=== PATIENT | male | born 1970 | race Caucasian/White ===

== ENCOUNTER 2017-12-27 12:19 | Emergency (ER) | payer OTHER ==
[2017-12-27] MEDS ORDERED: Piperacillin/Tazobactam 4.5 GM in Sodium Chloride 0.9% 100 ML IV ONE (12:59)
[2017-12-27] MEDS ORDERED: Bacitracin Oint 1 GM U/D Packet TOP ONE (13:04)
[2017-12-27] MEDS ORDERED: Diphtheria,Pertussis(Acell),Tetanus Vaccine 0.5 ML SDV IM ONE (13:21)
--- NOTE | 2017-12-27 14:03 | EDM.PDOC ---
ED HPI GENERAL MEDICAL PROBLEM - General Chief Complaint: Laceration Stated Complaint: LACERATION LEFT WRIST Time Seen by Provider: 12/27/17 13:20 Source of Information: Reports: Patient History Limitations: Reports: No Limitations - History of Present Illness INITIAL COMMENTS - FREE TEXT/NARRATIVE: pt was using a hot wire glass tube cutter today and it slipped and he ended up with a cut on the dorsum of his hand. He had a fair amount of bleeding at the time. Onset: Today Duration: Hour(s): Location: Reports: Upper Extremity, Right Associated Symptoms: Reports: No Other Symptoms Wrist Pain Score (Numeric/FACES): 5 - Related Data Allergies Allergy/AdvReac Type Severity Reaction Status Date / Time No Known Allergies Allergy Verified 12/27/17 13:14 Home Meds: Home Meds NK [No Known Home Meds] 12/27/17 [History] Past Medical History Musculoskeletal History: Reports: Fracture - Infectious Disease History Infectious Disease History: Reports: Chicken Pox - Past Surgical History GI Surgical History: Reports: Hernia, Inguinal Social & Family History - Tobacco Use Smoking Status *Q: Heavy Tobacco Smoker Years of Tobacco use: 25 Packs/Tins Daily: 1 - Caffeine Use Caffeine Use: Reports: Coffee, Energy Drinks, Soda - Recreational Drug Use Recreational Drug Use: No ED ROS GENERAL - Review of Systems Review Of Systems: See Below Constitutional: Reports: No Symptoms HEENT: Reports: No Symptoms Respiratory: Reports: No Symptoms Cardiovascular: Reports: No Symptoms Endocrine: Reports: No Symptoms GI/Abdominal: Reports: No Symptoms : Reports: No Symptoms Musculoskeletal: Reports: Other (laceration on the dorsum of the rt hand at the base of the thumb--2 inches in length. ) ED EXAM, SKIN/RASH Exam: See Below Text/Narrative:: Pt has a laceration at the dorsum of the lrt thumb- circular 2 inches in total length. He had full range of motion of the thumb. He had numbness over the dorsum of the thumb after he was injected with lidocaine. Exam Limited By: No Limitations General Appearance: Alert, Anxious, Mild Distress Extremities: Other ( Pt had a 2 inch circular laceration on the dorsum of the rt thumb-- 2 inches in total length. This was injected with lidocaine. He did develop some numbness over the dorsum of the thumb. He had great motio. The wound was closed with 5-0 chromic and 5-0 prolene. The wound was dressed with bacatracin and a dressing was applied. ) Course - Vital Signs Last Recorded V/S: Last Vital Signs Temp 36.2 C 12/27/17 13:20 Pulse 85 12/27/17 13:20 Resp 16 12/27/17 13:20 BP 131/83 12/27/17 13:20 Pulse Ox 98 12/27/17 13:20 - Orders/Labs/Meds Orders: Active Orders 24 hr Category Date Time Status Vaccines to be Administered [RC] PER UNIT ROUTINE Care 12/27/17 13:21 Active Meds: Medications Discontinued Medications Generic Name Dose Route Start Last Admin Trade Name Freq PRN Reason Stop Dose Admin Bacitracin 1 dose 12/27/17 13:04 12/27/17 13:23 Bacitracin Oint 1 Gm TOP 12/27/17 13:05 1 dose ONETIME ONE Administration Diphtheria/Tetanus/Acell Pertussis 0.5 ml 12/27/17 13:21 12/27/17 13:49 Adacel IM 12/27/17 13:22 0.5 ml .ONCE ONE Administration Piperacillin Sod/Tazobactam 100 mls @ 200 mls/hr 12/27/17 12:59 12/27/17 14: 00 Sod 4.5 gm/ Sodium Chloride IV 12/27/17 13:28 Not Given Q6H ONE Lidocaine HCl 5 ml 12/27/17 12:58 12/27/17 13:23 Xylocaine-Mpf 1% INJECT 12/27/17 12:59 5 ml ONETIME ONE Administration Departure - Departure Time of Disposition: 14:02 Disposition: Home, Self-Care 01 Condition: Fair Clinical Impression: Laceration of hand - Discharge Information Referrals: PCP,None [Primary Care Provider] - Forms: ED Department Discharge Care Plan Goals: keep dry, no further ointments, sr in 8 days. keep covered, rtc if redness or drainage. - My Orders Last 24 Hours: My Active Orders 12/27/17 13:21 Vaccines to be Administered [RC] PER UNIT ROUTINE - Assessment/Plan Last 24 Hours: My Active Orders 12/27/17 13:21 Vaccines to be Administered [RC] PER UNIT ROUTINE
== END 2017-12-27 14:09 | disposition home or self-care (01) ==
LOC: JP.ED 12:19
DX: S61.411A Laceration without foreign body of right hand, initial encounter (principal); Z72.0 Tobacco use; Z23 Encounter for immunization; W01.0XXA Fall on same level from slipping, tripping and stumbling without subsequent striking against object, initial encounter
CPT/HCPCS: 12002; 90471; 90715; 99283-25

== ENCOUNTER 2018-04-18 01:35 | Emergency (ER) | payer OTHER ==
[2018-04-18] MEDS ORDERED: methylPREDNISolone Acetate 80 MG/ML SDV IARTIC ONE (02:31)
[2018-04-18] MEDS ORDERED: Lidocaine 1% 20 ML MDV INJECT ONE (02:35)
[2018-04-18] MEDS ORDERED: HYDROmorphone 1 MG/ML Syringe IM ONE (02:59)
[2018-04-18] MEDS ORDERED: Ondansetron 4 MG Tab.DIS PO ONE (03:00)
--- NOTE | 2018-04-18 04:36 | EDM.PDOC ---
ED HPI GENERAL MEDICAL PROBLEM - General Chief Complaint: Lower Extremity Injury/Pain Stated Complaint: GOUT IN KNEE Time Seen by Provider: 04/18/18 03:11 Source of Information: Reports: Patient History Limitations: Reports: No Limitations - History of Present Illness INITIAL COMMENTS - FREE TEXT/NARRATIVE: This patient complains of a gout attack to his left knee for 3 days. He says the pain is getting really severe he can't stand it anymore. He insists that we drained the knee and do a steroid injection. He said he's had that before and it always helps. He's aware of the risk of infection anytime and joint is aspirated left knee Pain Score (Numeric/FACES): 12 - Related Data Allergies Allergy/AdvReac Type Severity Reaction Status Date / Time No Known Allergies Allergy Verified 04/18/18 02:00 Home Meds: Home Meds atorvaSTATin Calcium [Atorvastatin Calcium] 20 mg PO DAILY 02/17/18 [History] Past Medical History Cardiovascular History: Reports: High Cholesterol Musculoskeletal History: Reports: Fracture, Gout Endocrine/Metabolic History: Reports: Obesity/BMI 30+ - Infectious Disease History Infectious Disease History: Reports: Chicken Pox - Past Surgical History GI Surgical History: Reports: Hernia, Inguinal Musculoskeletal Surgical History: Reports: Shoulder Surgery Social & Family History - Tobacco Use Smoking Status *Q: Current Every Day Smoker Years of Tobacco use: 30 Packs/Tins Daily: 1 - Caffeine Use Caffeine Use: Reports: Coffee, Energy Drinks, Soda - Recreational Drug Use Recreational Drug Use: No Review of Systems - Review of Systems Review Of Systems: ROS reveals no pertinent complaints other than HPI. ED EXAM, GENERAL - Physical Exam Exam: See Below Exam Limited By: No Limitations General Appearance: Alert, WD/WN, Moderate Distress Neurological: Other (There is no erythema to the left knee. There is some suggestion of effusion. There is a horseshoe shaped firm structure superior to the patella which looks like a distended synovial sac although it seems firmer than would be expected. Palpating along the joint line of the knee there does seem to be a little bit of effusion. Most of his pain is in the posterior knee and I palpated the area and think there may be a Pascual's cyst there) Course - Vital Signs Last Recorded V/S: Last Vital Signs Temp 37.1 C 04/18/18 02:02 Pulse 125 H 04/18/18 02:02 Resp 20 04/18/18 02:02 BP 140/90 04/18/18 02:02 Pulse Ox 96 04/18/18 02:02 - Orders/Labs/Meds Meds: Medications Discontinued Medications Generic Name Dose Route Start Last Admin Trade Name Allison PRN Reason Stop Dose Admin Hydromorphone HCl 2 mg 04/18/18 02:59 04/18/18 03:19 Dilaudid IM 04/18/18 03:00 2 mg ONETIME ONE Administration Lidocaine HCl 5 ml 04/18/18 02:31 04/18/18 02:48 Xylocaine-Mpf 1% INJECT 04/18/18 02:32 Not Given ONETIME ONE Lidocaine HCl 20 ml 04/18/18 02:35 04/18/18 02:41 Xylocaine 1% INJECT 04/18/18 02:36 20 ml ONETIME ONE Administration Methylprednisolone Acetate 80 mg 04/18/18 02:31 04/18/18 02:40 Depo-Medrol IARTIC 04/18/18 02:32 80 mg ONETIME ONE Administration Ondansetron HCl 4 mg 04/18/18 03:00 04/18/18 03:17 Zofran Odt PO 04/18/18 03:01 4 mg ONETIME ONE Administration - Re-Assessments/Exams Free Text/Narrative Re-Assessment/Exam: 04/18/18 05:23 Procedure: Joint aspiration verbal informed consent was obtained. Patient is aware of the risks of placing a needle into the joint to aspirate fluids. We discussed that it chance of infection patient is however having severe pain and insisted that we aspirate the knee. The anterior knee was then prepped with several swabs of Betadine. I then used under sterile technique injected about 1 mL of 1% plain lidocaine at the level of the joint line just lateral to the patellar tendon. Using sterile technique and 18-gauge needle on a 20 mL syringe was then inserted into the joint line and clear straw-colored fluid was removed. There is no thick pus. I was only able to remove about 20 mL from this area. Palpating the rest the knee there is no further fluid in the area of the knee joint itself and the horseshoe shaped structure superior to the patella seems like it went down a little bit when I aspirated the fluid. The needle was withdrawn and the bandage was applied. The patient received an injection of Dilaudid to 2 mg IM and Zofran 4 mg sublingual. After appropriate period of time he still had a lot of pain and so he was given Dilaudid 1 mg IM. This gave some moderate pain control and I went back and examined the knee again he wanted be to aspirate the area above the patella so that area was prepped and I then entered it with an 18-gauge needle but despite that fullness in that area there was no fluid could be aspirated. I reexamined the knee and I think there may be a Pascual's cyst in the popliteal fossa but otherwise the joint line shows no swelling. Departure - Departure Time of Disposition: 04:32 Disposition: Home, Self-Care 01 Condition: Fair Clinical Impression: Gout of knee - Discharge Information Instructions: Gout, [id number] Referrals: PCP,None [Primary Care Provider] - Forms: ED Department Discharge Additional Instructions: Take Percocet 5/325 one or 2 tablets every 4 hours as needed for pain. This medication can cause sedation so use with caution. Continue taking Aleve but take 2 tablets twice daily. Elevate your knee and apply ice when able.
== END 2018-04-18 04:44 | disposition home or self-care (01) ==
LOC: JP.ED 01:35
DX: M10.9 Gout, unspecified (principal); F17.210 Nicotine dependence, cigarettes, uncomplicated; E78.00 Pure hypercholesterolemia, unspecified; Z79.899 Other long term (current) drug therapy
CPT/HCPCS: 20610; 96372; 99283; A9270; J1040; J1170

== ENCOUNTER 2020-01-31 06:22 | Day surgery (SDC) | payer OTHER ==
[2020-01-31] MEDS ORDERED: Nozin Nasal Sanitizer NASBOTH ONE (06:30)
[2020-01-31] MEDS ORDERED: ceFAZolin 2 GM in Premix Bag 1 BAG IV ONE (06:30)
[2020-01-31] MEDS ORDERED: Lactated Ringers 1,000 ML IV SCH (06:30)
[2020-01-31] MEDS ORDERED: Dexamethasone 4 MG/ML SDV ONE (07:27)
[2020-01-31] MEDS ORDERED: Rocuronium 50 MG/5 ML Vial ONE (07:27)
[2020-01-31] MEDS ORDERED: fentaNYL 250 MCG/5 ML SDV ONE ×2 (07:27→08:55)
[2020-01-31] MEDS ORDERED: Succinylcholine 200 MG/10 ML MDV ONE (07:27)
[2020-01-31] MEDS ORDERED: Neostigmine Methylsulfate 1 MG/ML 5 ML Syringe ONE (07:27)
[2020-01-31] MEDS ORDERED: Ondansetron 4 MG/2 ML SDV ONE (07:27)
[2020-01-31] MEDS ORDERED: Propofol 200 MG/20 ML SDV ONE (07:27)
[2020-01-31] MEDS ORDERED: Glycopyrrolate 0.2 MG/ML 5 ML MDV ONE (07:27)
[2020-01-31] MEDS ORDERED: Albuterol/Ipratropium 3.0-0.5 MG/3 ML Neb Soln NEB ONE (07:30)
[2020-01-31] MEDS: Bupivacaine 0.5% 50 ML MDV ONE ×2 (07:57→08:58)
--- NOTE | 2020-02-02 17:44 | OR ---
DATE OF PROCEDURE: 01/31/2020 SURGEON: Jimmy Lyles MD PREOPERATIVE DIAGNOSIS: Synovitis, left knee. POSTOPERATIVE DIAGNOSES: 1. Synovitis, left knee. 2. Medial meniscus tear. 3. Chondromalacia, patellofemoral joint. 4. Chondrocalcinosis, left knee. PROCEDURES: 1. Arthroscopy of left knee with partial medial meniscectomy. 2. Chondroplasty, patellofemoral joint 3. Extensive synovectomy, 3 compartment. ANESTHESIA: General. INDICATIONS: Farida is a 49-year-old gentleman with a history of left knee pain and recurrent effusions. He has had multiple injections of cortisone over the past few years. Has episodes of persistent pain ranging from sharp to dull and achy and intermittent effusions, which have required aspiration. He now presents for arthroscopic evaluation with synovectomy. Risks, benefits, potential complications of the procedure were discussed. PROCEDURE IN DETAIL: After adequate anesthesia was obtained, the patient was placed supine with a tourniquet about the left upper thigh. Left leg was prepped and draped in a sterile fashion. Leg was exsanguinated and tourniquet inflated to 300 mmHg pressure. Standard anterior inferior portals were established. Scope was introduced. Examination reveals fairly extensive chondrocalcinosis throughout the joint with crystalline deposits throughout the articular and meniscal cartilage. Synovitis was present throughout the knee , particularly in the suprapatellar pouch with the overgrowth and hypertrophic synovium. Medial compartment reveals a small tear in the junction of the midbody and posterior horn, primarily free edge with some extension radially. Intercondylar notch reveals intact ACL and PCL. Lateral compartment is intact. Meniscus and articular cartilage are intact with the exception of the crystalline deposits. Patellofemoral joint shows some grade 2 and 3 changes in the trochlear groove with primarily grade 1 and 2 changes of the patella. Attention was turned to the medial compartment where the medial meniscus tear was debrided back to a stable margin using a combination of a punch basket and shaver. Using a combination of the shaver and surface radiofrequency ablation wand, synovectomy was performed moving up the medial gutter up into the suprapatellar pouch and then over into the lateral gutter. Scope was switched from the lateral portal to the medial portal and the synovectomy continued into the lateral gutter. All loose fragments were removed. No other abnormalities were identified. Knee was drained. Scope was withdrawn. Port sites were closed in a standard fashion and a sterile dressing was applied. The patient tolerated the procedure very well with no complications. He was taken from the operating room in stable condition. Jimmy Lyles MD /[id number] MTDD
== END 2020-01-31 11:15 | disposition home or self-care (01) ==
LOC: JP.SDS 06:22
PROVIDERS: ATTEND Specialist
DX: M65.9 Synovitis and tenosynovitis, unspecified (principal); S83.242A Other tear of medial meniscus, current injury, left knee, initial encounter; M22.42 Chondromalacia patellae, left knee; M11.262 Other chondrocalcinosis, left knee; X58.XXXA Exposure to other specified factors, initial encounter
CPT/HCPCS: 29876; 29881; 36415; 80053; 85027; A9270; J0330; J0690; J1100; J2405; J2704; J2710; J3010; J3490; J7120; J7620-GY

== ENCOUNTER 2022-06-29 02:01 | Emergency (ER) | payer OTHER ==
[2022-06-29] MEDS ORDERED: Ketorolac 30 MG/ML SDV IVPUSH ONE (02:05)
[2022-06-29] MEDS ORDERED: Sodium Chloride 0.9% 10 ML Syringe FLUSH PRN (02:05)
[2022-06-29] MEDS ORDERED: Dexamethasone 4 MG/ML SDV IVPUSH STA (02:17)
[2022-06-29] MEDS ORDERED: HYDROmorphone 1 MG/ML Syringe IVPUSH ONE (02:18)
== END 2022-06-29 03:36 | disposition home or self-care (01) ==
LOC: JP.ED 02:01
DX: M10.072 Idiopathic gout, left ankle and foot (principal); E66.9 Obesity, unspecified; Z68.33 Body mass index [BMI] 33.0-33.9, adult; Z79.899 Other long term (current) drug therapy
CPT/HCPCS: 36415; 80048; 84550; 85025; 86140; 96374; 96375; 99283; J1100; J1170; J1885; J3490

== ENCOUNTER 2022-09-12 03:22 | Emergency (ER) | payer OTHER ==
[2022-09-12] MEDS ORDERED: Ketorolac 30 MG/ML SDV IM ONE (03:49)
[2022-09-12] MEDS ORDERED: Colchicine 0.6 MG Tab PO ONE ×2 (03:49→03:50)
== END 2022-09-12 04:09 | disposition home or self-care (01) ==
LOC: JP.ED 03:22
DX: M10.472 Other secondary gout, left ankle and foot (principal); F17.210 Nicotine dependence, cigarettes, uncomplicated; E66.9 Obesity, unspecified; Z68.1 Body mass index [BMI] 19.9 or less, adult; Z79.899 Other long term (current) drug therapy
CPT/HCPCS: 96372; 99283; A9270; J1885

== ENCOUNTER 2023-04-13 20:53 | Emergency (ER) | payer OTHER ==
[2023-04-13] MEDS ORDERED: Aspirin 81 MG Tab.Chew PO ONE (21:09)
[2023-04-13] MEDS ORDERED: Sodium Chloride 0.9% 10 ML Syringe FLUSH PRN (21:09)
[2023-04-13 21:15] LABS: BASOPHILS ABSOLUTE AUTO 0.07 K/uL (0.00-0.10); BASOPHILS PERCENT AUTO 0.7 % (0.1-1.3); EOSINOPHILS ABSOLUTE AUTO 0.23 K/uL (0.00-0.40); EOSINOPHILS PERCENT AUTO 2.2 % (0.0-5.4); HEMATOCRIT 43.5 % (38.4-49.7); HEMOGLOBIN 15.7 g/dL (12.9-16.9); IMMATURE GRAN ABSOLUTE AUTO 0.06 K/uL (0.00-0.23); IMMATURE GRAN PERCENT AUTO 0.6 % (0.0-0.7); LYMPHOCYTES ABSOLUTE AUTO 3.45 K/uL (0.8-3.3); LYMPHOCYTES PERCENT AUTO 32.3 % (11.4-47.7); MEAN CORPUSCULAR HEMOGLOBIN 32.8 pg (31.6-35.5); MEAN CORPUSCULAR HGB CONC 36.1 g/dL (31.6-35.5); MONOCYTES ABSOLUTE AUTO 1.14 K/uL (0.20-0.90); MONOCYTES PERCENT AUTO 10.7 % (3.3-12.6); NEUTROPHILS ABSOLUTE AUTO 5.72 K/uL (1.0-7.6); NEUTROPHILS PERCENT AUTO 53.5 % (40.0-78.1); PLATELET COUNT,PLT 209 K/uL (130-375); RED BLOOD CELL COUNT 4.78 M/uL (4.14-5.76); WHITE BLOOD CELL COUNT,WBC 10.7 K/uL (3.2-11.0)
[2023-04-13] MEDS ORDERED: Morphine 2 MG/ML SYRINGE IVPUSH ONE (21:19)
[2023-04-13 21:27] LABS: PROTHROMBIN TIME 10.2 sec (9.2-10.6); PTT,PARTIAL THROMBOPLSTIN TIME 22.8 sec (21.8-27.3)
[2023-04-13 21:31] LABS: CALCIUM 8.9 mg/dL (8.5-10.1); EST CRCL DRUG DOSING (CG) 92.03 mL/min; POTASSIUM,K 3.5 mmol/L (3.6-5.2); TROPONIN I HIGH SENSITIVITY 5.6 pg/mL (<=60.3)
[2023-04-13 21:34] LABS: BASE EXCESS VENOUS 2.3 mm/L; BICARBONATE,VENOUS 26.4 mmol/L; CARBOXYHEMOGLOBIN 5.5 % (0.0-1.6); METHEMOGLOBIN 0.9 %; O2 SATURATION VENOUS 63.2; OXYHEMOGLOBIN 59.2 %; PCO2 VENOUS 40.7 mm/Hg; PH,VENOUS 7.427 (7.350-7.450); TOTAL HEMOGLOBIN 16.2 g/dL (13.5-18.0)
[2023-04-13 21:36] LABS: ANION GAP 11.5 mmol/L (5.0-14.0)
[2023-04-13 21:36] LABS: PO2 VENOUS 33.3 mm/Hg
== END 2023-04-13 22:11 | disposition home or self-care (01) ==
LOC: JP.ED 20:53
DX: R07.89 Other chest pain (principal); R73.9 Hyperglycemia, unspecified; K21.9 Gastro-esophageal reflux disease without esophagitis; R03.0 Elevated blood-pressure reading, without diagnosis of hypertension; F17.200 Nicotine dependence, unspecified, uncomplicated; E66.9 Obesity, unspecified; Z68.34 Body mass index [BMI] 34.0-34.9, adult
CPT/HCPCS: 36415; 71045; 80048; 82803; 84484; 85025; 85379; 85610; 85730; 93005; 96374; 99285; A9270; J2270; J3490